=== PATIENT | female | born 1990 | race African-American/Black ===

== ENCOUNTER 2021-08-11 15:50 | Emergency (ER) | payer BC ==
[~2021-08-11] VITALS: Ht 165.1 cm; Wt 77.0 kg
[2021-08-11] MEDS ORDERED: FAMOTIDINE 20MG/2ML VIAL IV STA (16:10)
[2021-08-11] MEDS ORDERED: SODIUM CHLORIDE 0.9% 1,000 ML IV ONE (16:15)
[2021-08-11] MEDS ORDERED: PREDNISONE 20MG TABLET PO ONE (18:45)
[2021-08-11] MEDS ORDERED: DIPH25CA83 MT (19:37)
[2021-08-11] MEDS ORDERED: FAMO-135 MT (19:37)
[2021-08-11] MEDS ORDERED: EPIN0.3P3 IM (19:37)
[2021-08-11] MEDS ORDERED: P50 MT (19:37)
[2021-08-11 19:45] VITALS: BP 136/95
== END 2021-08-11 20:00 | disposition home or self-care (01) ==
LOC: ER 15:50
DX: T78.09XA Anaphylactic reaction due to other food products, initial encounter (principal); I10 Essential (primary) hypertension; T78.49XA Other allergy, initial encounter; Z91.018 Allergy to other foods
CPT/HCPCS: 96361; 96374; 99283; J3490; J7030; Z7610